=== PATIENT | male | born 1955 | race African-American/Black ===

== ENCOUNTER 2017-04-11 08:24 | Emergency (ER) | payer BC ==
[2017-04-11] MEDS ORDERED: ASPIRIN 81 MG TABLET, CHEWABLE PO ONE (10:33)
--- NOTE | 2017-04-11 10:36 | ER Document Report ---
ED Medical Screen (RME) - General Mode of Arrival: Ambulatory Information source: Patient TRAVEL OUTSIDE OF THE [place] IN LAST 30 DAYS: No <AVEL CESAR - Last Filed: 04/11/17 10:34> <JOÃO GAONA - Last Filed: 04/12/17 10:23> - General Chief Complaint: Chest Pain Stated Complaint: LEFT SHOULDER/LEG PAIN Time Seen by Provider: 04/11/17 10:33 Notes: 2-year-old male presents to ED for chest pain since 1:30 AM. He states is more to the left side from the center up to the shoulder. Denies any radiation to the arm or neck. Has a history of high blood pressure and high cholesterol denies any history of any heart attacks A. fib or any other cardiac history. Takes the pain as a 3 out of 5 sharp at times. Denies any cough shortness of breath or runny nose. Denies any use of aspirin this morning. Lungs are clear at this time. I have greeted and performed a rapid initial assessment of this patient. A comprehensive ED assessment and evaluation of the patient, analysis of test results and completion of medical decision making process will be conducted by an additional ED providers. (AVEL CESAR) - Related Data Allergies/Adverse Reactions: pork derived (porcine) [Pork derived (porcine)] Allergy (Intermediate, Verified 04/11/17 08:29) N&V diazepam [From Valium] Adverse Reaction (Intermediate, Verified 04/11/17 08:29) N&V Past Medical History - Past Medical History Cardiac Medical History: Reports: Hx Hypertension - meds x 15 years Denies: Hx Atrial Fibrillation, Hx Congestive Heart Failure, Hx Coronary Artery Disease, Hx Heart Attack, Hx Hypercholesterolemia, Hx Peripheral Vascular Disease, Hx Pulmonary Embolism, Hx Heart Murmur Pulmonary Medical History: Reports: Hx Asthma - last ED visit approx 2 years ago , Hx Bronchitis Denies: Hx COPD, Hx Pneumonia, Hx Respiratory Failure, Hx Sleep Apnea, Hx Tuberculosis Renal/ Medical History: Denies: Hx Peritoneal Dialysis Malignancy Medical History: Denies Hx Lung Cancer Musculoskeltal Medical History: Reports Hx Arthritis, Denies Hx Fibromyalgia, Denies Hx Muscular Dystrophy Traumatic Medical History: Reports: Hx Fractures - 5th finger RT hand, remote past, no eval by Past Surgical History: Reports: Hx Herniorrhaphy - umbilical. Denies: Hx Appendectomy, Hx Bowel Surgery, Hx Cholecystectomy, Hx Coronary Artery Bypass Graft, Hx Gastric Bypass Surgery, Hx Pacemaker, Hx Tonsillectomy <AVEL CESAR - Last Filed: 04/11/17 10:34> Course - Laboratory Result Diagrams: 04/11/17 10:50 04/11/17 10:50 <JOÃO GAONA - Last Filed: 04/12/17 10:23> - Vital Signs Vital signs: Temp Pulse Resp BP Pulse Ox 97.7 F 55 L 18 165/102 H 100 04/11/17 08:29 04/11/17 17:42 04/11/17 17:42 04/11/17 17:42 04/11/17 17:42 - Laboratory Laboratory results interpreted by me: 04/11/17 04/11/17 10:50 10:50 RDW 15.5 H Eosinophils % 7.1 H Calcium 10.3 H Direct Bilirubin 0.5 H Creatine Kinase 211 H Doctor's Discharge <AVEL CESAR - Last Filed: 04/11/17 10:34> <JOÃO GAONA - Last Filed: 04/12/17 10:23> - Discharge Clinical Impression: Chest wall pain, Left foot pain Condition: Stable Disposition: HOME, SELF-CARE Additional Instructions: CHEST PAIN OF UNCLEAR CAUSE: The exact cause of your chest pain isn't clear. Fortunately, there is no evidence of a dangerous medical condition. Further testing may be required to find the source of the pain. Most often, we find that this pain is coming from the chest wall -- the muscles or rib joints in the chest. But chest pain can come from the lung and lung lining, the esophagus, the heart valves or heart lining, and even the stomach or gallbladder. Rest. Eat lightly until the pain is gone. We may prescribe medicine for pain and inflammation. You should call the physician immediately if the pain radiates to the shoulder, jaw or arms; if you start to run a fever or develop a cough; or if you develop shortness of breath, or other new or alarming symptoms. NORMAL EXAM AND WORKUP: At this time, your examination and workup show no significant abnormality. No significant abnormal physical findings were noted. All laboratory, EKG, and imaging (x-ray, CT scans, ultrasound) studies that were ordered show no significant abnormality. Although your examination and all studies that were ordered showed no significant abnormal finding, there are no examinations and no studies that are 100% accurate. There is always the possibility that some abnormality could exist and not be detected with physical examination or within the limits and capabilities of laboratory and other studies. You should return or follow up as you were instructed on your visit today for further evaluation if your symptoms do not resolve. CHEST WALL PAIN: Your chest pain may be coming from the chest wall. This is often caused by straining the muscles or joints in the chest during physical activity, direct trauma, coughing, or vigorous vomiting. Persons with arthritis are especially prone to this type of pain, due to inflammation of the cartilage joints near the breast bone. Occasionally, no cause can be found. Rest from strenuous physical activity. This kind of chest pain is usually made worse by movement of the chest. Depending on the symptoms, we may prescribe medicine for pain, muscle relaxation, and antiinflammatory effects. If the pain is new, and seems to be due to muscle strain, cold packs can help. Otherwise, apply gentle warmth to the painful area for 15 minutes every hour or two. You should call contact the doctor immediately if things change. Further evaluation is needed if you develop a fever or cough, if the nature of the pain changes, or if you become short of breath. FOLLOW-UP CARE: If you have been referred to a physician for follow-up care, call the physician s office for an appointment as you were instructed or within the next two days. If you experience worsening or a significant change in your symptoms, notify the physician immediately or return to the Emergency Department at any time for re-evaluation. Neuropathy Your symptoms are due to neuropathy. Neuropathy is nerve damage. There are many causes, including diabetes, immune disease, alcohol, blood vessel disease, and vitamin deficiency. The usual symptoms are pain and numbness. Neuropathy can occur anywhere, but it's most likely in the "longest" nerves. That's why the feet are most often affected. Sometimes the nerve damage can heal. But if the symptoms have lasted more than a few months, the damage is permanent. To avoid further damage, treat your underlying health problems carefully. If you have diabetes, keep the blood sugar as normal as possible. Avoid alcohol. Treat high blood pressure and high cholesterol. Treating chronic pain can be a problem. Obviously, you don't want to become addicted to pain medicine. Work closely with your doctor on pain management. Your options include antiinflammatory medicine, anti seizure medicine, antidepressants, and pain clinic management. Contact the doctor if there is a significant change. Referrals: STACEY HORVATH MD [Primary Care Provider] - Follow up as needed
[2017-04-11 11:09] LABS: MEAN CORPUSCULAR VOLUME 88 fl (80-97)
[2017-04-11 11:13] LABS: ABSOLUTE EOSINOPHILS # (AUTO) 0.4 10^3/uL (0.0-0.6); ABSOLUTE MONOCYTES (AUTO) 0.7 10^3/uL (0.1-1.4); ABSOLUTE NEUT (AUTO) 2.7 10^3/uL (1.7-8.2); BASOPHILS % (AUTO) 0.6 % (0-2); EOSINOPHILS % (AUTO) 7.1 % (0-6); HEMATOCRIT 41.7 % (37.9-51.0); HEMOGLOBIN 13.6 g/dL (13.5-17.0); HGB HCT DIFFERENCE -0.9; LYMPHOCYTES % (AUTO) 34.5 % (13-45); MEAN CORPUSCULAR HEMOGLOBIN 28.6 pg (27.0-33.4); MEAN CORPUSCULAR HGB CONC 32.6 g/dL (32.0-36.0); MONOCYTES % (AUTO) 11.5 % (3-13); RED BLOOD COUNT 4.74 10^6/uL (4.35-5.55); RED CELL DISTRIBUTION WIDTH 15.5 % (11.5-14.0); SEGMENTED NEUTROPHILS % (AUTO) 46.3 % (42-78); WHITE BLOOD COUNT 5.8 10^3/uL (4.0-10.5)
[2017-04-11 11:26] LABS: ALANINE AMINOTRANSFERASE 53 U/L (21-72); ALBUMIN 4.7 g/dL (3.5-5.0); ALKALINE PHOSPHATASE 93 U/L (38-126); ANION GAP 12 (5-19); ASPARTATE AMINO TRANSFERASE 27 U/L (17-59); BILIRUBIN,DIRECT 0.5 mg/dL (0.0-0.4); BILIRUBIN,TOTAL 0.7 mg/dL (0.2-1.3); BLOOD UREA NITROGEN 11 mg/dL (7-20); CALCIUM 10.3 mg/dL (8.4-10.2); CARBON DIOXIDE 28 mmol/L (22-30); CHLORIDE 105 mmol/L (98-107); CREATINE KINASE 211 U/L (55-170); CREATININE RESULT 1.02 mg/dL (0.52-1.25); GLUCOSE 93 mg/dL (75-110); MAGNESIUM 2.2 mg/dL (1.6-2.3); POTASSIUM 4.5 mmol/L (3.6-5.0); SODIUM 144.5 mmol/L (137-145); TOTAL PROTEIN 7.9 g/dL (6.3-8.2)
[2017-04-11 11:37] LABS: CREATINE KINASE MB 1.87 ng/mL (<4.55)
[2017-04-11 11:38] LABS: TROPONIN I < 0.012 ng/mL
--- NOTE | 2017-04-11 11:58 | ER Document Report ---
ED Cardiac - General Chief Complaint: Chest Pain Stated Complaint: LEFT SHOULDER/LEG PAIN Time Seen by Provider: 04/11/17 10:33 Mode of Arrival: Ambulatory Notes: The patient is a 62 yo male, PMHx PAD s/p left leg stents, hypertension, presents with left lateral chest wall pain after he bent down to tie his shoe earlier today. He says the pain is worse when he presses on the area and when he extends his left shoulder. Said the pain improved after anti- inflammatories. Patient states that he has also having intermittent discoloration of his left foot over the past few months. He has not seen his vascular surgeon for the past year. He denies back pain, fevers, shortness of breath, nausea, vomiting, numbness, tingling, abdominal pain or diaphoresis. TRAVEL OUTSIDE OF THE [place] IN LAST 30 DAYS: No - Related Data Allergies/Adverse Reactions: pork derived (porcine) [Pork derived (porcine)] Allergy (Intermediate, Verified 04/11/17 08:29) N&V diazepam [From Valium] Adverse Reaction (Intermediate, Verified 04/11/17 08:29) N&V Past Medical History - General Information source: Patient - Social History Smoking Status: Current Every Day Smoker Family History: Reviewed & Not Pertinent Patient has suicidal ideation: No Patient has homicidal ideation: No - Past Medical History Cardiac Medical History: Reports: Hx Hypertension - meds x 15 years Denies: Hx Atrial Fibrillation, Hx Congestive Heart Failure, Hx Coronary Artery Disease, Hx Heart Attack, Hx Hypercholesterolemia, Hx Peripheral Vascular Disease, Hx Pulmonary Embolism, Hx Heart Murmur Pulmonary Medical History: Reports: Hx Asthma - last ED visit approx 2 years ago , Hx Bronchitis Denies: Hx COPD, Hx Pneumonia, Hx Respiratory Failure, Hx Sleep Apnea, Hx Tuberculosis Renal/ Medical History: Denies: Hx Peritoneal Dialysis Malignancy Medical History: Denies Hx Lung Cancer Musculoskeltal Medical History: Reports Hx Arthritis, Denies Hx Fibromyalgia, Denies Hx Muscular Dystrophy Traumatic Medical History: Reports: Hx Fractures - 5th finger RT hand, remote past, no eval by MD Past Surgical History: Reports: Hx Herniorrhaphy - umbilical. Denies: Hx Appendectomy, Hx Bowel Surgery, Hx Cholecystectomy, Hx Coronary Artery Bypass Graft, Hx Gastric Bypass Surgery, Hx Pacemaker, Hx Tonsillectomy Review of Systems - Review of Systems Notes: REVIEW OF SYSTEMS: CONSTITUTIONAL: -fevers, -chills EENT: -eye pain, -difficulty swallowing, -nasal congestion CARDIOVASCULAR: +chest pain, -syncope. RESPIRATORY: -cough, -SOB GASTROINTESTINAL: -abdominal pain, - nausea, -vomiting, -diarrhea GENITOURINARY: -dysuria, -hematuria MUSCULOSKELETAL: +left foot pain, -back pain, -neck pain SKIN: -rash or skin lesions. HEMATOLOGIC: -easy bruising or bleeding. LYMPHATIC: -swollen, enlarged glands. NEUROLOGICAL: -altered mental status or loss of consciousness, -headache, - neurologic symptoms PSYCHIATRIC: -anxiety, -depression. ALL OTHER SYSTEMS REVIEWED AND NEGATIVE. Physical Exam - Vital signs Vitals: Temp Pulse Resp BP Pulse Ox 97.7 F 57 L 16 165/105 H 97 04/11/17 08:29 04/11/17 08:29 04/11/17 08:29 04/11/17 08:29 04/11/17 08:29 - Notes Notes: PHYSICAL EXAMINATION: GENERAL: Well-appearing, well-nourished and in no acute distress. HEAD: Atraumatic, normocephalic. EYES: Pupils equal round and reactive to light, extraocular movements intact, sclera anicteric, conjunctiva are normal. ENT: nares patent, oropharynx clear without exudates. Moist mucous membranes. NECK: Normal range of motion, supple without lymphadenopathy LUNGS: Breath sounds clear to auscultation bilaterally and equal. No wheezes rales or rhonchi. HEART: Regular rate and rhythm without murmurs. Tenderness over left lateral chest wall. ABDOMEN: Soft, nontender, normoactive bowel sounds. No guarding, no rebound. No masses appreciated. EXTREMITIES: Dopplerable left pedal and posterior tibial pulses, no palpable pulses, brisk capillary refill, normal Normal range of motion, no pitting or edema. No cyanosis. NEUROLOGICAL: Cranial nerves grossly intact. Normal speech, normal gait. Normal sensory, motor, and reflex exams. PSYCH: Normal mood, normal affect. SKIN: Warm, Dry, normal turgor, no rashes or lesions noted. Course - Re-evaluation Re-evalutation: Pt's chest pain is atypical for ACS, PE or aortic dissection at this time. It is reproducible on palpation may be related to a muscle strain. 2 sets of troponins are negative. His HEART score is 3 and he is safe for outpatient workup of his chest pain. His CT of his lower extremity showed possible occlusion of his stent, but vascular ultrasound shows patent femoral and popliteal stents without any occlusions. Spoke to patient about following up with his vascular surgeon and primary care physician. Given strict return precautions and he understands - Vital Signs Vital signs: Temp Pulse Resp BP Pulse Ox 97.7 F 53 L 18 112/90 H 100 04/11/17 08:29 04/11/17 14:05 04/11/17 14:05 04/11/17 14:05 04/11/17 14:05 - Laboratory Result Diagrams: 04/11/17 10:50 04/11/17 10:50 Laboratory results interpreted by me: 04/11/17 04/11/17 10:50 10:50 RDW 15.5 H Eosinophils % 7.1 H Calcium 10.3 H Direct Bilirubin 0.5 H Creatine Kinase 211 H - Diagnostic Test Radiology reviewed: Image reviewed, Reports reviewed Radiology results interpreted by me: 04/11/17 17:11 - EKG Interpretation by Mo EKG shows normal: Sinus rhythm, Robards, Intervals, QRS Complexes, ST-T Waves Rate: Normal Discharge - Discharge Clinical Impression: Chest wall pain, Left foot pain Condition: Stable Disposition: HOME, SELF-CARE Additional Instructions: CHEST PAIN OF UNCLEAR CAUSE: The exact cause of your chest pain isn't clear. Fortunately, there is no evidence of a dangerous medical condition. Further testing may be required to find the source of the pain. Most often, we find that this pain is coming from the chest wall -- the muscles or rib joints in the chest. But chest pain can come from the lung and lung lining, the esophagus, the heart valves or heart lining, and even the stomach or gallbladder. Rest. Eat lightly until the pain is gone. We may prescribe medicine for pain and inflammation. You should call the physician immediately if the pain radiates to the shoulder, jaw or arms; if you start to run a fever or develop a cough; or if you develop shortness of breath, or other new or alarming symptoms. NORMAL EXAM AND WORKUP: At this time, your examination and workup show no significant abnormality. No significant abnormal physical findings were noted. All laboratory, EKG, and imaging (x-ray, CT scans, ultrasound) studies that were ordered show no significant abnormality. Although your examination and all studies that were ordered showed no significant abnormal finding, there are no examinations and no studies that are 100% accurate. There is always the possibility that some abnormality could exist and not be detected with physical examination or within the limits and capabilities of laboratory and other studies. You should return or follow up as you were instructed on your visit today for further evaluation if your symptoms do not resolve. CHEST WALL PAIN: Your chest pain may be coming from the chest wall. This is often caused by straining the muscles or joints in the chest during physical activity, direct trauma, coughing, or vigorous vomiting. Persons with arthritis are especially prone to this type of pain, due to inflammation of the cartilage joints near the breast bone. Occasionally, no cause can be found. Rest from strenuous physical activity. This kind of chest pain is usually made worse by movement of the chest. Depending on the symptoms, we may prescribe medicine for pain, muscle relaxation, and antiinflammatory effects. If the pain is new, and seems to be due to muscle strain, cold packs can help. Otherwise, apply gentle warmth to the painful area for 15 minutes every hour or two. You should call contact the doctor immediately if things change. Further evaluation is needed if you develop a fever or cough, if the nature of the pain changes, or if you become short of breath. FOLLOW-UP CARE: If you have been referred to a physician for follow-up care, call the physician s office for an appointment as you were instructed or within the next two days. If you experience worsening or a significant change in your symptoms, notify the physician immediately or return to the Emergency Department at any time for re-evaluation. Neuropathy Your symptoms are due to neuropathy. Neuropathy is nerve damage. There are many causes, including diabetes, immune disease, alcohol, blood vessel disease, and vitamin deficiency. The usual symptoms are pain and numbness. Neuropathy can occur anywhere, but it's most likely in the "longest" nerves. That's why the feet are most often affected. Sometimes the nerve damage can heal. But if the symptoms have lasted more than a few months, the damage is permanent. To avoid further damage, treat your underlying health problems carefully. If you have diabetes, keep the blood sugar as normal as possible. Avoid alcohol. Treat high blood pressure and high cholesterol. Treating chronic pain can be a problem. Obviously, you don't want to become addicted to pain medicine. Work closely with your doctor on pain management. Your options include antiinflammatory medicine, anti seizure medicine, antidepressants, and pain clinic management. Contact the doctor if there is a significant change.
[2017-04-11] MEDS ORDERED: NAPROXEN 250 MG TABLET PO ONE (12:10)
[2017-04-11 17:42] VITALS: BP 165/102
--- NOTE | 2017-04-12 07:50 | XCELERA REPORT ---
[address] [address] Lower Extremity Arterial Evaluation Name: JERRICA MORRIS Age: 62 yrs Gender: Male : 1955 Patient Status: Emergency Patient Location: ER Study Date: 04/11/2017 04:47 PM Procedure: A color flow and duplex scan of the lower extremity arteries was performed on the left with velocity and waveform anaylsis. Reason For Study: left leg pain, occluded stent?, faint pulses Ordering Physician: MADY RICHARDSON Performed By: Elijah Ma Measurements and Calculations Right Left CURRICULUM DEVELOPMENT COORDINATOR PSV 102.9 cm/sec Prox PFA PSV -143.8 cm/sec Prox SFA PSV 81.6 cm/sec Mid SFA PSV 82.0 cm/sec Dist SFA PSV -51.1 cm/sec Dist Pop A PSV 67.2 cm/sec Dist SAGAR PSV 45.6 cm/sec Dist SLP TEACHER PSV 39.3 cm/sec Dandy Pedis PSV 61.1 50.3 cm/sec Right Side Arterial Evaluation Triphasic waveform in the Dorsalis Pedis. Left Side Arterial Evaluation Normal velocity and triphasic waveforms noted from the Common Femoral artery to the Popliteal artery. Biphasic with slight broadening only in the infrageniculate vessels. An arterial stent is present from the distal Femoral to Popliteal arteries, it seems to be patent. 0-19% stenosis at the Popliteal level. Ankle Brachial index was not done. Critical Findings Study called in to the Emergency room. Interpretation Summary : MADY RICHARDSON > Atul Kunz
--- NOTE | 2017-04-12 17:41 | EKG REPORT ---
SEVERITY:- ABNORMAL ECG - SINUS RHYTHM LEFT VENTRICULAR HYPERTROPHY : Confirmed by: Rhoda Carlin MD 12-Apr-2017 17:40:55
== END 2017-04-11 17:42 | disposition home or self-care (01) ==
LOC: ER 08:24
DX: R07.89 Other chest pain (principal); M79.672 Pain in left foot; M25.512 Pain in left shoulder; I10 Essential (primary) hypertension; F17.200 Nicotine dependence, unspecified, uncomplicated
CPT/HCPCS: 36415; 71020; 80053; 82550; 82553; 83735; 84484; 85025; 85610; 85730; 93005; 93010; 93926; 99285

== ENCOUNTER → 2020-01-17 | Outpatient (CLI) | payer BC ==
--- NOTE | 2020-01-17 14:52 | RADIOLOGY REPORT (SQ) ---
EXAM DESCRIPTION: CT CHEST WITH COMPLETED DATE/TIME: 01/17/2020 2:16 pm REASON FOR STUDY: I71.2 THORACIC AORTIC ANEURYSM, WITHOUT RUPTURE I71.2 THORACIC AORTIC ANEURYSM, W ITHOUT RUPTURE COMPARISON: None. TECHNIQUE: CT scan of the chest performed using helical scanning technique with dynamic intravenous contrast injection. Images reviewed with lung, soft tissue and bone windows. Reconstructed coronal and sagittal MPR and MIP images reviewed. All images stored on PACS. All CT scanners at this facility use dose modulation, iterative reconstruction, and/or weight based d osing when appropriate to reduce radiation dose to as low as reasonably achievable (ALARA). [facility]: Dose Right [facility]: CareDose [facility]: Dose Right [facility]: Teradose 4D [facility]: [employer] CONTRAST TYPE AND DOSE: contrast/concentration: Isovue 350.00 mg/ml; Total Contrast Delivered: 80.0 ml; Total Saline Delivered: 55.0 ml RENAL FUNCTION: Creatinine 0.9 RADIATION DOSE: CT Rad equipment meets quality standard of care and radiation dose reduction techniq ues were employed. CTDIvol: 13.3 mGy. DLP: 565 mGy-cm. . LIMITATIONS: None. FINDINGS: LUNGS AND PLEURA: Minimal atelectatic changes in the lung bases. HILAR AND MEDIASTINAL STRUCTURES: Small hiatal hernia. No mediastinal or hilar adenopathy or masses otherwise. HEART AND VASCULAR STRUCTURES: Mild aneurysmal dilatation of the ascending aorta at 42.2 mm. No diss ection. No pericardial effusion. Coronary artery calcifications are present. HARDWARE: None in the chest. UPPER ABDOMEN: No significant findings. Limited exam. THYROID AND OTHER SOFT TISSUES: No masses. No adenopathy. BONES: No significant finding. OTHER: No other significant finding. IMPRESSION: Mild aneurysmal dilatation of the ascending aorta that measures 42.2 mm. No dissection. Small hiatal hernia. Moderate coronary atherosclerosis. TECHNICAL DOCUMENTATION: JOB ID: [id number] Quality ID # [id number]: Final reports with documentation of one or more dose reduction techniques (e.g., Au tomated exposure control, adjustment of the mA and/or kV according to patient size, use of iterative reconstruction technique) 2010 [employer]- All Rights Reserved Reading location - IP/workstation name: [email or web address]
== END ==
LOC: RAD 13:37
PROVIDERS: ATTEND Surgery
DX: I71.2 Thoracic aortic aneurysm, without rupture (principal); I25.10 Atherosclerotic heart disease of native coronary artery without angina pectoris; K44.9 Diaphragmatic hernia without obstruction or gangrene
CPT/HCPCS: 71260; 82565